=== PATIENT | male | born 1965 | race Caucasian/White ===

== ENCOUNTER 2016-10-22 13:31 | Emergency (ER) | payer OTHER ==
[~2016-10-22] VITALS: Ht 177.8 cm; Wt 99.8 kg
--- NOTE | 2016-10-22 13:52 | ED GENERAL ADULT ---
History of Present Illness General Chief Complaint: Laceration Procedure Stated Complaint: LACERATION TO LEFT THIGH Source: patient Exam Limitations: no limitations Vital Signs & Intake/Output Vital Signs & Intake/Output Vital Signs Date Time Temp Pulse Resp B/P Pulse O2 O2 Flow FiO2 Ox Delivery Rate 10/22 1705 78 16 147/92 04 Room Air 10/22 1615 Room Air 10/22 1344 98.4 67 18 134/71 100 Allergies Coded Allergies: No Known Drug Allergies (10/22/16) Reconcile Medications Cephalexin (Keflex) 500 MG CAPSULE 1 CAP PO BID IFN Cephalexin (Keflex) 500 MG CAPSULE 1 CAP PO BID IFN Ibuprofen 600 MG TABLET 1 TAB PO TID PRN PAIN with food Mupirocin Calcium (Bactroban Nasal) 2 % OINT...G. 1 GM TP BID WOUND apply one-half in each nostril Triage Note: DONNA FROM URGENT CARE IN [place]. 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 (LEFT TIB/FIB AREA). EMS REPORTS PT HAD MULTIPLE NEAR-SUNCOPLA EPISODES WHILE LOODING AT LACERATION. 10 CM LINEAR LACERATION TO LEFT NERI, WITH FAT EXPOSRE. EVALUATED BY DR. SCHNEIDER. Triage Nurses Notes Reviewed? yes Onset: Abrupt Duration: hour(s): Timing: recent history Severity: severe HPI: 10/22/16 51-year-old male presents to the emergency department complaining of laceration to the left leg. The patient was actually working and fell from a truck, striking the left leg on a metal edge of the truck and this happened earlier today he noticed the blood but continued working. He got home and saw there was an extensive laceration and he went to an urgent care center. He was subsequently sent to the emergency department by ambulance. He denies other injuries or complaints. He is on immunomodulater therapy for psoriasis. Past History Travel History Traveled to [place] past 21 day No Medical History Any Pertinent Medical History? see below for history Musculoskeletal: psoriasis Surgical History Surgical History: non-contributory Psychosocial History What is your primary language Urdu Tobacco Use: Current Daily Use Daily Tobacco Use Amount/Type: =< 4 Cigarettes daily ETOH Use: denies use Family History Hx Contributory? No Review of Systems Review of Systems Constitutional: Denies: fever. EENTM: Denies: visual changes. Respiratory: Denies: short of breath. Cardiovascular: Denies: chest pain. GI: Denies: abdominal pain. Genitourinary: Reports: no symptoms. Musculoskeletal: Reports: see HPI. Skin: Reports: see HPI. Neurological/Psychological: Reports: no symptoms. Hematologic/Endocrine: Reports: bruising, bleeding. Physical Exam Physical Exam General Appearance: alert, awake, anxious, moderate distress Head: atraumatic, normal appearance Eyes: Bilateral: normal appearance, PERRL, EOMI. Ears, Nose, Throat: normal ENT inspection Neck: supple Respiratory: chest non-tender, no respiratory distress Cardiovascular: regular rate/rhythm Gastrointestinal: non-tender Back: decreased range of motion Extremities: swelling, tenderness, 4 inch laceration Neurologic/Psych: no motor/sensory deficits, awake, alert, oriented x 3 Skin: 4 inch laceration left leg Comments: X-ray of the left leg is negative. On physical exam he has a 4 inch laceration avulsion to the left leg, anterior tibial region. It is irregular and dirty. There is a high risk of wound infection and this was explained to the patient, the laceration extended down to the periosteum. Core Measures ACS in differential dx? No CVA/TIA Diagnosis: No Severe Sepsis Present: No Septic Shock Present: No Progress Differential Diagnoses I considered the following diagnoses in my evaluation of the patient: [Fracture, wound infection, foreign body, laceration, tendon injury] Plan of Care: Follow-up in ED in 48 hours. Initial ED EKG: none Departure Departure Disposition: HOME OR SELF CARE Condition: Stable Clinical Impression Primary Impression: Laceration Secondary Impressions: Crush injury Referrals: VERO SABILLON,KARTHIK Godoy Departure Forms: Customer Survey General Discharge Information Prescriptions: Current Visit Scripts Cephalexin (Keflex) 1 CAP PO BID #20 CAP Ibuprofen 1 TAB PO TID PRN PAIN #20 TAB with food Cephalexin (Keflex) 1 CAP PO BID #20 CAP Mupirocin Calcium (Bactroban Nasal) 1 GM TP BID #10 GM apply one-half in each nostril Comments Procedure Wound closure Under sterile technique and local anesthesia. The patient was first given Keflex and Motrin. The 4 inch laceration was irrigated vigorously with over a liter of saline. The wound was the debrided by me. The wound was closed after anesthesia and irrigation. 10 mL of 2% lidocaine was used. 3 4-0 Vicryl sutures were used to close the subcuticular area. 12 3-0 nylon mattress sutures were applied to close the skin. Bacitracin and a sterile dressing was applied. The patient will follow up with me on Thursday for wound check. He was told to elevate the leg and not to work for 48 hours. Critical Care Note Critical Care Note Critical Care Time: 30-74 min
--- NOTE | 2016-10-22 14:49 | RADIOLOGY REPORT ---
EXAMINATION: XR TIBIA AND FIBULA, LEFT CLINICAL INFORMATION: 51-year-old man with trauma. COMPARISON: None TECHNIQUE: AP and lateral views of the left tibia and fibula were obtained. FINDINGS: The bones and soft tissues are normal. No fracture. No osseous lesions. IMPRESSION: Normal left tibia and fibula.
[2016-10-22] MEDS ORDERED: KEFLEX500 M1 PO ×2 (15:46→15:48)
[2016-10-22] MEDS ORDERED: IBUPROFEN600 M1 PO (15:48)
[2016-10-22] MEDS ORDERED: BACTROBAN NASAL1 GM TP (16:57)
[2016-10-22 17:05] VITALS: BP 147/92
== END 2016-10-22 17:06 ==
LOC: ERH 13:31
DX: S81.822A Laceration with foreign body, left lower leg, initial encounter (principal); S87.82XA Crushing injury of left lower leg, initial encounter; W17.89XA Other fall from one level to another, initial encounter
CPT/HCPCS: 73590-LT; 90471; 90714; J2001

== ENCOUNTER 2016-10-24 09:58 | Emergency (ER) | payer OTHER ==
[~2016-10-24] VITALS: Ht 177.8 cm; Wt 99.8 kg
[~2016-10-24 09:58] MED LIST: BACTROBAN NASAL1 GM TP; IBUPROFEN600 M1 PO; KEFLEX500 M1 PO
[2016-10-24 10:02] VITALS: BP 130/77
--- NOTE | 2016-10-24 10:25 | ED GENERAL ADULT ---
History of Present Illness General Chief Complaint: Suture Removal/Wound Recheck Stated Complaint: WOUND CHECK Source: patient Exam Limitations: no limitations Vital Signs & Intake/Output Vital Signs & Intake/Output Vital Signs Date Time Temp Pulse Resp B/P Pulse O2 O2 Flow FiO2 Ox Delivery Rate 10/24 1002 98.3 70 20 130/77 97 Room Air Room Air Allergies Coded Allergies: No Known Drug Allergies (10/22/16) Reconcile Medications No Known Home Medications Triage Note: PT TO ED FOR WOUND CHECK OF LEFT LOWER LEG, HAD 20 SUTURES ON THURSDAY. Triage Nurses Notes Reviewed? yes Onset: Abrupt Duration: day(s): Timing: recent history HPI: 10/24/16 10:50 AM 51-year-old male presents to the emergency department for wound check. The patient is status post 4 inch high impact injury to the left leg, layered Wound closure was done by me proximally 48 hours ago. He has no complaints, less pain no active bleeding no discharge. X-ray of the left leg was negative. He is on antibiotics. The onset of the symptoms were abrupt, the duration was approximately 48 hours ago, the severity is significant; as his symptoms required him to come to the emergency department for care. Past History Travel History Traveled to [place] past 21 day No Medical History Any Pertinent Medical History? see below for history Neurological: NONE EENT: NONE Cardiovascular: NONE Respiratory: NONE Gastrointestinal: NONE Hepatic: NONE Renal: NONE Musculoskeletal: psoriasis Psychiatric: NONE Endocrine: NONE Blood Disorders: NONE Cancer(s): NONE Tetanus Vaccine: 10/22/16 Surgical History Surgical History: non-contributory Psychosocial History What is your primary language Azeri Tobacco Use: Current Daily Use Daily Tobacco Use Amount/Type: => 5 Cigarettes daily ETOH Use: denies use Illicit Drug Use: denies illicit drug use Family History Hx Contributory? No Review of Systems Review of Systems Constitutional: Denies: fever. EENTM: Reports: no symptoms. Respiratory: Reports: no symptoms. Cardiovascular: Reports: no symptoms. GI: Reports: no symptoms. Genitourinary: Reports: no symptoms. Musculoskeletal: Reports: see HPI. Skin: Reports: see HPI. Neurological/Psychological: Reports: no symptoms. Hematologic/Endocrine: Denies: bleeding. Physical Exam Physical Exam General Appearance: alert, awake, anxious, mild distress Head: atraumatic Eyes: Bilateral: normal appearance. Ears, Nose, Throat: normal pharynx, normal ENT inspection Neck: normal inspection, supple, full range of motion Respiratory: chest non-tender, no respiratory distress Cardiovascular: regular rate/rhythm Peripheral Pulses: 4+ dorsalis pedis (L) Back: normal range of motion Extremities: tenderness Neurologic/Psych: no motor/sensory deficits, awake, alert, oriented x 3 Skin: laceration left leg Comments: The patient has no signs of compartment syndrome. The wound is clean. There is no redness, there is no discharge, there is no active bleeding. He has a 4 inch mattress sutured laceration to the left anterior tibial area. Core Measures ACS in differential dx? No CVA/TIA Diagnosis: No Severe Sepsis Present: No Septic Shock Present: No Progress Differential Diagnoses I considered the following diagnoses in my evaluation of the patient: [ Department syndrome, foreign body, wound infection, wound dehiscence, tendon injury, nerve injury] Plan of Care: continue the antibiotics follow up with Dr. Acevedo in the ED on Thursday. Initial ED EKG: none Departure Departure Disposition: HOME OR SELF CARE Condition: Stable Clinical Impression Primary Impression: Laceration of left leg Referrals: PATIENT HAS NO PRIMARY CARE DR (PCP/Family) Departure Forms: Customer Survey General Discharge Information Prescriptions: Current Visit Scripts No Known Home Medications Critical Care Note Critical Care Note Critical Care Time: non-applicable
== END 2016-10-24 11:03 ==
LOC: ERH 09:58
DX: S81.812A Laceration without foreign body, left lower leg, initial encounter (principal); X58.XXXA Exposure to other specified factors, initial encounter
CPT/HCPCS: 99281

== ENCOUNTER 2016-10-27 10:23 | Emergency (ER) | payer OTHER ==
[~2016-10-27] VITALS: Ht 177.8 cm; Wt 99.8 kg
[2016-10-27 10:39] VITALS: BP 157/90
[2016-10-27] MEDS ORDERED: KEFLEX500 M1 PO (10:47)
--- NOTE | 2016-10-27 11:04 | ED GENERAL ADULT ---
History of Present Illness General Chief Complaint: Suture Removal/Wound Recheck Stated Complaint: WOUND RECHECK Source: patient Exam Limitations: no limitations Vital Signs & Intake/Output Vital Signs & Intake/Output Vital Signs Date Time Temp Pulse Resp B/P Pulse O2 O2 Flow FiO2 Ox Delivery Rate 10/27 1039 96.1 71 18 157/90 99 Room Air Allergies Coded Allergies: No Known Drug Allergies (10/22/16) Reconcile Medications Cephalexin (Keflex) 500 MG CAPSULE 1 CAP PO BID ANTIBIOTIC, INFECTION ( Reported) Triage Note: 51 Y/O MALE RETURNS FOR WOUND CHECK TO [facility]; STATES HE WAS TOLD TO RETURN TODAY FOR RECHECK. STATES SUTURES ARE STILL IN PLACE, "I THINK IT FEELS BETTER" Triage Nurses Notes Reviewed? yes Onset: Abrupt Duration: day(s): Timing: recent history HPI: 10/27/16 11 AM 51-year-old male presents to the emergency department for wound check. He is status post substantial laceration to the left lower extremity. No complaints, no fever less pain, no redness, no discharge. The onset of the symptoms were abrupt, the duration has been approximately 4 days, the severity is significant; as his symptoms required him to come to the emergency department for care. The left leg was examined. The dressing was changed by the emergency department medical student under my direct supervision. Past History Travel History Traveled to [place] past 21 day No Medical History Any Pertinent Medical History? see below for history Neurological: NONE EENT: NONE Cardiovascular: NONE Respiratory: NONE Gastrointestinal: NONE Hepatic: NONE Renal: NONE Musculoskeletal: psoriasis Psychiatric: NONE Endocrine: NONE Blood Disorders: NONE Cancer(s): NONE Tetanus Vaccine: 10/22/16 Surgical History Surgical History: non-contributory Psychosocial History What is your primary language French Tobacco Use: Current Daily Use Daily Tobacco Use Amount/Type: =< 4 Cigarettes daily Family History Hx Contributory? No Review of Systems Review of Systems Constitutional: Denies: fever. EENTM: Reports: no symptoms. Respiratory: Reports: no symptoms. Cardiovascular: Reports: no symptoms. GI: Reports: no symptoms. Genitourinary: Reports: no symptoms. Musculoskeletal: Reports: see HPI. Skin: Reports: see HPI. Neurological/Psychological: Reports: no symptoms. Hematologic/Endocrine: Denies: bleeding. Physical Exam Physical Exam General Appearance: alert, awake, anxious, mild distress Head: atraumatic, normal appearance Eyes: Bilateral: normal appearance, PERRL, EOMI. Ears, Nose, Throat: normal ENT inspection Neck: full range of motion Respiratory: no respiratory distress Cardiovascular: regular rate/rhythm Back: normal range of motion Extremities: 4 INCH SUTURED LACERATION, WELL APPROXIMATED, NO DISCHARGE, NO SIGNIFICANT REDNESS, LESS PAIN REPORTED. THIS IS ON THE LEFT ANTERIOR TIBIA REGION OF THE LEG Neurologic/Psych: no motor/sensory deficits, awake, alert, oriented x 3 Skin: intact Core Measures ACS in differential dx? No CVA/TIA Diagnosis: No Severe Sepsis Present: No Septic Shock Present: No Progress Differential Diagnoses I considered the following diagnoses in my evaluation of the patient: [Wound infection, foreign body, and abscess, the patient was told the possibility of a foreign body remains and the signs to look out for, for wound infection.] Plan of Care: Follow-up for suture removal. Initial ED EKG: none Departure Departure Disposition: HOME OR SELF CARE Condition: Stable Clinical Impression Primary Impression: Laceration Secondary Impressions: Visit for wound check Referrals: PATIENT HAS NO PRIMARY CARE DR (PCP/Family) Departure Forms: Customer Survey General Discharge Information Critical Care Note Critical Care Note Critical Care Time: non-applicable
== END 2016-10-27 11:22 ==
LOC: ERH 10:23
DX: Z48.01 Encounter for change or removal of surgical wound dressing (principal)
CPT/HCPCS: 99281

== ENCOUNTER 2016-11-06 14:25 | Emergency (ER) | payer OTHER ==
[~2016-11-06] VITALS: Ht 177.8 cm; Wt 99.8 kg
[2016-11-06 14:29] VITALS: BP 180/90
--- NOTE | 2016-11-06 14:50 | ED ANIMAL BITE/WOUND CHECK ---
History of Present Illness General Chief Complaint: Suture Removal/Wound Recheck Stated Complaint: STITCHES REMOVAL Source: patient Exam Limitations: no limitations Vital Signs & Intake/Output Vital Signs & Intake/Output Vital Signs Date Time Temp Pulse Resp B/P Pulse O2 O2 Flow FiO2 Ox Delivery Rate 11/06 1429 96.6 96 16 180/90 97 Room Air Allergies Coded Allergies: No Known Drug Allergies (10/22/16) Reconcile Medications Cephalexin (Keflex) 500 MG CAPSULE 1 CAP PO BID ANTIBIOTIC, INFECTION ( Reported) Triage Note: PT HERE FOR SUTURE REMOVAL FROM LEFT NERI. PT STATES SUTURES PLACED 2 WEEKS AGO. Triage Nurses Notes Reviewed? yes HPI: 51 year old man seen for wound check. Patients wound appears well healed with sutures in place. No obvious overlying erythema or drainage. Patient reports previously going to a walk in center to have sutures removed however states that they could only remove three of them as the rest were "too tight". He denies any new fever, chills, or tenderness in the area. (RAMBO SKELTON MD) Past History Travel History Traveled to [place] past 21 day No Medical History Any Pertinent Medical History? see below for history Neurological: NONE EENT: NONE Cardiovascular: NONE Respiratory: NONE Gastrointestinal: NONE Hepatic: NONE Renal: NONE Musculoskeletal: psoriasis Psychiatric: NONE Endocrine: NONE Blood Disorders: NONE Cancer(s): NONE Tetanus Vaccine: 10/22/16 Surgical History Surgical History: non-contributory Psychosocial History What is your primary language Marshallese Tobacco Use: Current Daily Use Daily Tobacco Use Amount/Type: => 5 Cigarettes daily ETOH Use: denies use Illicit Drug Use: denies illicit drug use Family History Hx Contributory? No (RAMBO SKELTON MD) Review of Systems Review of Systems Constitutional: Reports: see HPI. (RAMBO SKELTON MD) Physical Exam Physical Exam General Appearance: well developed/nourished, no apparent distress, alert, awake , comfortable Extremities: 10cm well healed laceration with scabbing, no drainage or erythema, multiple well healed suture yancey with scant amount of bloody drainage (RAMBO SKELTON MD) Progress Differential Diagnosis: wound check Plan of Care: Need to apply local wound care to the area. Return to the ED or call 911 should you develop any fever or chills or new symptoms worsen. (RAMBO SKELTON MD) Departure Departure Disposition: HOME OR SELF CARE Condition: Stable Clinical Impression Primary Impression: Visit for wound check Referrals: PATIENT HAS NO PRIMARY CARE DR (PCP/Family) Additional Instructions: Continue to apply local wound care to the area. Avoid Injury to the area. Call 911 or return to the ED should your symptoms are worsen. Departure Forms: Customer Survey General Discharge Information (NAFISA SABILLON,RAMBO) Resident Co-Sign Statement Statement: ED Attending supervision documentation- [x] I saw and evaluated the patient. I have also reviewed all the pertinent lab results and diagnostic results. I agree with the findings and the plan of care as documented in the Resident's documentation. [] I have reviewed the ED Record and agree with the Resident's documentation. [] Additions or exceptions (if any) to the Resident's note and plan are summarized below: [] (ALLYSSA SABILLON,BLADIMIR Valencia)
== END 2016-11-06 14:52 ==
LOC: ERH 14:25
DX: S81.812D Laceration without foreign body, left lower leg, subsequent encounter (principal)
CPT/HCPCS: 99281